=== PATIENT | male | born 1965 | race Caucasian/White ===

== ENCOUNTER 2018-01-20 09:23 | Emergency (ER) ==
[2018-01-20 09:29] VITALS: BP 135/83; TEMP 98.6; BMI 26.6
[2018-01-20] MEDS ORDERED: ANCEF 1 GM in SODIUM CHLORIDE 100 ML IV STA (10:18)
[2018-01-20] MEDS ORDERED: ANCEF ONE (10:23)
[2018-01-20] MEDS: LIDOCAINE HCL 1% SDV ONE ×2 (10:31→10:38)
--- NOTE | 2018-01-20 11:03 | ED.PDOC ---
General ED Provider: Dr. KELLY OCHOA Chief Complaint: Finger Laceration Stated Complaint: Patient states he was using a mitar saw attempting to put some trim on the wall, go into a hurry and accidently cut my lt 5th finger. Appears to involve proximal medial aspect of 5th phalynx extending horizonal across dorsal aspect of proximal phalynx laterally to the palmar aspect of the distal aspect of the 5th Metacarpal regio at the base of 5th phalynx.Has complete motion of 5 th digit including flexion, extension,adduction and abduction. Time Seen by Physician: 09:30 Mode of Arrival: Walk-In Information Source: Patient Exam Limitations: No limitations Primary Care Provider: MIHAELA DUBON Nursing and Triage Documentation Reviewed and Agree: Yes Reviewed sepsis parameters & appropriate labs ordered?: Yes System Inflammatory Response Syndrome: Not Applicable Sepsis Protocol: For patient's 13 years and over: Temp is 96.8 and below OR 101 and greater Pulse >90 BPM Resp >20/minute Acutely Altered Mental Status Are patient's symptoms suggestive of a new infection, such as: -Pneumonia -Skin, Soft Tissue -Endocarditis -UTI -Bone, Joint Infection -Implantable Device -Acute Abdominal Infection -Wound Infection -Meningitis -Blood Stream Catheter Infection -Unknown System Inflammatory Response Syndrome: Not Applicable Trauma/Injury Complaint Exam - Trauma Complaint/Exam Location of Pain or Injury: Reports: LUE Mechanism of Injury: Reports: Other (Miter saw injury) Review of Systems - Review Of Systems Constitutional: Reports: No symptoms Eyes: Reports: No symptoms Ears, Nose, Mouth, Throat: Reports: No symptoms Respiratory: Reports: No symptoms Cardiac: Reports: No symptoms GI: Reports: No symptoms : Reports: No symptoms Musculoskeletal: Reports: No symptoms, Other (hand injury) Skin: Reports: No symptoms Neurological: Reports: No symptoms Endocrine: Reports: No symptoms Hematologic/Lymphatic: Reports: No symptoms All Other Systems: Reviewed and Negative Past Medical History - Past Medical History Endocrine: Reports: None Cardiovascular: Reports: None Respiratory: Reports: None Hematological: Reports: None Gastrointestinal: Reports: None Genitourinary: Reports: None Neuro/Psych: Reports: None Musculoskeletal: Reports: None Cancer: Reports: None - Surgical History General Surgical History: Reports: Unknown - Family History Family History: Reports: Unknown - Social History Smoking Status: Current every day smoker, Heavy tobacco smoker Hx Substance Use: No Alcohol Screening: Occasionally - Immunizations Tetanus Shot up to Date: No Physical Exam - Physical Exam Appearance: Ill-appearing Ill-appearing: Mild Pain Distress: Moderate Eyes: LIT, EOMI ENT: Ears normal, Nose normal, Oropharynx normal Respiratory: Airway patent, Breath sounds clear, Breath sounds equal Cardiovascular: RRR, Pulses normal, No rub, No murmur GI/: Soft, Nontender, No masses, Bowel sounds normal, No Organomegaly Musculoskeletal: Normal strength (Injury to lt 5th phalynx), ROM intact, No edema, No calf tenderness Skin: Warm, Dry, Normal color Neurological: Sensation intact (diminshed sensation to lt 5th digit ), Motor intact, Cranial nerves intact, Alert, Oriented, Unresponsive Procedures - Laceration/Wound Repair hand laceration Wound Length (cm): 3.5 Wound Width: 3mm Wound Depth: 4mm Wound Explored: Clean Wound Irrigated: Yes Wound Prep: Saline, Hibiclens, Betadine Anesthesia: Lidocaine (7 cc) Wound Debrided: Minimal Wound Repaired With: Sutures Suture Size and Type: 3-0 prolene; 4-0 prolene, 5-0 vicryl Number of Sutures: 9 (simple; ) Number Deep Layer Sutures: 1 (repair ligamentous tear) Sterile Dressing Applied?: Yes Splint Applied?: Yes Type of Splint Applied: flexible Re-Evaluation - Re-Evaluation Time of Re-Evaluation: 11:30 Status: Improved Vital Signs Stable: Yes Appearance: NAD Neuro: Alert and Oriented X3 Additional Comments: Hand dressed; comfortable Critical Care Note - Critical Care Note Total Time (mins): 0 Course - Course Orders, Labs, Meds: Orders Category Date Time Status Cefazolin Sodium [Ancef] MEDS 01/20/18 10:23 Discontinued 1 gm .ROUTE .STK-MED ONE Cefazolin Sodium [Ancef] 1 gm MEDS 01/20/18 10:18 Discontinued 0.9 % Sodium Chloride [Sodium Chloride] 100 ml IV ONCE Diphth,Pertuss(Acell),Tet Vac [Boostrix] MEDS 01/20/18 11:58 Discontinued 0.5 ml IM .ONCE ONE Lidocaine HCl/Pf [Lidocaine HCl 1% Sdv] MEDS 01/20/18 10:23 Discontinued 5 ml .ROUTE .STK-MED ONE HAND, LEFT 3 VIEWS Stat RADS 01/20/18 11:16 Completed Medications Discontinued Medications Generic Name Dose Route Start Last Admin Trade Name Freq PRN Reason Stop Dose Admin Diphtheria/Pertussis/Tetanus Vacc 0.5 ml 01/20/18 11:58 01/20/18 12:09 Boostrix IM 01/20/18 11:59 0.5 ml .ONCE ONE Administration Cefazolin Sodium 1 gm/ Sodium 100 mls @ 100 mls/hr 01/20/18 10:18 01/20/18 10 :31 Chloride IV 01/20/18 11:17 100 mls/hr ONCE STA Administration Vital Signs: Temp Pulse Resp BP Pulse Ox 01/20/18 09:24 98.6 F 72 20 135/83 94 L Departure - Departure Time of Disposition: 12:15 Disposition: HOME SELF-CARE Discharge Problem: Laceration of hand Qualifiers: Encounter type: initial encounter Foreign body presence: without foreign body Laterality: left Qualified Code(s): S61.412A - Laceration without foreign body of left hand, initial encounter Discharge Problem: (Ruled Out): Laceration of left hand involving tendon, Laceration of hand with tendon involvement including fingers Instructions: Care For Your Stitches (ED) Condition: Good Pt referred to PMD for follow-up: Yes (Viraj BURTON, [facility] ) IPMP verified?: No Prescriptions: Hydrocodone Bit/Acetaminophen [[place] 5-325] 1 - 2 each PO Q4HR PRN #20 tablet PRN Reason: Severe Pain Lt Hand Cephalexin [Keflex] 500 mg PO BID #14 capsule Hydrocodone/Acetaminophen [Hydrocodon-Acetaminophen 5-325] 1 - 2 each PO Q4-6H PRN #20 tablet PRN Reason: hand pain Allergies/Adverse Reactions: Allergies No Known Allergies Allergy (Verified 01/20/18 09:27) Home Medications: Ambulatory Orders Cephalexin [Keflex] 500 mg PO BID #14 capsule 01/20/18 Hydrocodone Bit/Acetaminophen [[place] 5-325] 1 - 2 each PO Q4HR PRN #20 tablet Hydrocodone/Acetaminophen [Hydrocodon-Acetaminophen 5-325] 1 - 2 each PO Q4-6H PRN #20 tablet 01/20/18 Disposition Discussed With: Patient
--- NOTE | 2018-01-20 11:42 | DI ---
Exam: Left hand three-view History: Trauma, laceration Findings / impression: There is a 4.4 x 2.1 mm cortical defect on the ulnar side of the proximal pha lanx of the small finger. No full-thickness fracture lines. The missing bone fragments are not seen. Soft tissue gas is present in the ulnar side of the hand. No radiopaque foreign body is seen.
[2018-01-20] MEDS ORDERED: BOOSTRIX IM ONE (11:58)
== END 2018-01-20 12:33 | disposition home or self-care (01) ==
LOC: ED 09:23
DX: S61.412A Laceration without foreign body of left hand, initial encounter (principal); S62.617A Displaced fracture of proximal phalanx of left little finger, initial encounter for closed fracture; W29.8XXA Contact with other powered hand tools and household machinery, initial encounter; F17.210 Nicotine dependence, cigarettes, uncomplicated
CPT/HCPCS: 90471; 90715; 96365; 99283